=== PATIENT | female | born 1995 | race Caucasian/White ===

== ENCOUNTER 2018-12-24 14:16 | Emergency (ER) | payer BC, OTHER ==
[~2018-12-24] VITALS: Ht 165.1 cm; Wt 83.1 kg
[~2018-12-24 14:16] MED LIST: ONDA4TAB8 PO
[2018-12-24 14:19] VITALS: Ht 165.1 cm; Wt 83.1 kg
[2018-12-24] MEDS ORDERED: NAPR-985 PO (16:09)
--- NOTE | 2018-12-24 16:21 | ERD ---
ER Documentation Chief Complaint Chief Complaint Complains of lower back pain x 3 days HPI This is a 23-year-old female patient presents emergency room with complaint of middle low back pain starting yesterday and increasing today. Patient states she has had this pain on and off for the last 3 years that began during . Yesterday she was lifting and moving heavy boxes all day at work. She is ambulatory with steady gait, NAD. No other medical problems. ROS All systems reviewed and are negative except as per history of present illness. Medications Home Meds Active Scripts Naproxen* (Naprosyn*) 500 Mg Tablet, 500 MG PO BID PRN for PAIN AND/OR INFLAMMATION, #30 TAB Prov:MADISON MCCLELLAND NP 12/24/18 Ondansetron Hcl* (Zofran*) 4 Mg Tablet, 4 MG PO Q6H for NAUSEA AND/OR VOMITING, #30 TAB Prov:ARIN KAHN PA-C 09/21/15 Allergies Allergies: Coded Allergies: No Known Allergy (Unverified , 09/21/15) PMhx/Soc Medical and Surgical Hx: pt denies Medical Hx History of Surgery: No Anesthesia Reaction: No Hx Neurological Disorder: No Hx Respiratory Disorders: No Hx Cardiac Disorders: No Hx Psychiatric Problems: No Hx Miscellaneous Medical Probl: No Hx Alcohol Use: No Hx Substance Use: No Hx Tobacco Use: No Smoking Status: Never smoker FmHx Family History: No diabetes, No coronary disease, No other Physical Exam Vitals Vital Signs Date Temp Pulse Resp B/P (MAP) Pulse Ox O2 O2 Flow FiO2 Time Delivery Rate 12/24/18 97.7 75 20 122/63 100 14:19 (82) Physical Exam Const: No acute distress Head: Atraumatic Eyes: Normal Conjunctiva, PERRL ENT: Normal External Ears, Nose and Mouth. Neck: Full range of motion. No meningismus. Lymphadenopathy, no thyromegaly Resp: Clear to auscultation bilaterally Cardio: Regular rate and rhythm, no murmurs Abd: Soft, non tender, non distended. Normal bowel sounds Skin: No petechiae or rashes Const: No acute distress, no recent weight loss Neck: Full range of motion. No meningismus. Resp: Clear to auscultation bilaterally Cardio: Regular rate and rhythm, no murmurs Abd: Soft, non tender, non distended. Normal bowel sounds Skin: No petechiae or rashes Ext: No cyanosis, or edema, +cms Back Exam: Skin: No bruising or rash, no eccymosis Compartments: Soft Motor: Muscular strength 5/5 flexion and extension of bilateral hip/knee/ankle/foot, gait symmetric Sensation: Intact to light touch throughout Bones: No midline point tenderness or step-off, no CVT, point tenderness at S1, radiates into r gluteus Straight leg test: negative at 30 degrees Lumbar root: No difficulty with quad ext, squat & rise, dorsiflex great toe, heel walking, plantar flex, walk on toes Ext: No cyanosis, or edema Neur: Awake and alert Psych: Normal Mood and Affect Procedures/MDM 23-year-old female patient who presents with nontraumatic, chronic back pain. ED COURSE: The patient was stable throughout ED course. DIAGNOSTIC IMAGING: Not indicated MEDICATIONS GIVEN: Not indicated MDM: Patient is able to ambulate to treatment area without assistance. Patient is seated on the stretcher without obvious distress. There is no surface trauma. No spasms, no step-off or deformity, no CVA tenderness to percussion, patient is able to stand erect. Normal flexion and extension with lateral bending and rotation without limitation. Heel and toe walk with good strength Straight leg raise negative for radiculopathy sensation to light touch is intact. Due to patient's presentation today there is low suspicion for malignancy, infection, epidural abscess, cauda equina syndrome, herniation, AAA. Patient's musculoskeletal symptoms have stabilized while they have been evaluated in the department and are appropriate for outpatient work up. Patient is being discharged home with instructions to follow-up with primary care provider. Patient is also provided prescription for NSAID with instructions for use of heat, ice, stretching. Red flags discussed, patient verbalized understanding of signs and symptoms to return to emergency room. DISPOSITION: The patient has been discharge home to follow-up with community physician. Departure Diagnosis: Primary Impression: Lumbar strain Condition: Stable Patient Instructions: Back Safety: Basics of Good Posture, Back Pain (Acute Or Chronic) Additional Instructions: Thank you very much for allowing us to participate in your care. Your health and safety is our top priority at [facility]. Call your primary care doctor TOMORROW for an appointment during the next 2-3 weeks and bring all the information and medications prescribed. Have prescriptions filled and follow precisely the directions on the label. If the symptoms get worse and your provider is unavailable, return to the [facility] Department immediately. Use moist heat 2-3 times per day, continue to use your IcyHot, use Naprosyn twice daily. Use good posture and lift from your knees not from your back. MADISON MCCLELLAND NP December 24, 2018 16:21
[2018-12-24 16:45] VITALS: BP 121/60; PULSE 77; RESP 18
== END 2018-12-24 16:45 | disposition home or self-care (01) ==
LOC: FTE 14:16
DX: S39.012A Strain of muscle, fascia and tendon of lower back, initial encounter (principal); X50.0XXA Overexertion from strenuous movement or load, initial encounter; Y92.9 Unspecified place or not applicable
CPT/HCPCS: 99282